=== PATIENT | male | born 1930 | race Caucasian/White ===

== ENCOUNTER → 2016-07-31 | Outpatient (CLI) | payer MEDICARE ==
[~2016-07-31] MED LIST: ACET65TA OR; ALDA25TA2 OR; ALEV220C2 PO; COUM1TAB17 PO; COUM7.5T PO; DEMA10TA OR; IRON65TA PO; LASI40TA PO; MULTIVIT PO; OSTEO BIFLEX PO; PERC5TAB6 PO; PERCOCET PO; SPIR25TA2 PO; TORS10TA3 PO; TYLE325T5 PO; VITA100072 IM; VITA250T OR; osteobiflex OR
--- NOTE | 2016-07-31 11:53 | REP ---
CHEST, TWO VIEWS: Two views of the chest are performed and compared to a prior study of 06/18/2014. There is mild elevation of the left hemidiaphragm unchanged. No new infiltrates are seen with mild bibasilar fibroatelectatic change. The heart is not significantly enlarged. There is tortuosity of the thoracic aorta. The mediastinal silhouette is unchanged. A left dual-lead pacemaker is noted. There are degenerative changes of the spine. IMPRESSION: Stable chronic findings without evidence of acute infiltrate. Signed by Alan Barajas MD 07/31/2016 05:17 P
== END ==
LOC: M LRY 10:13
PROVIDERS: ATTEND Family Medicine
DX: R05 Cough (principal)
CPT/HCPCS: 71020; G0463

== ENCOUNTER 2016-10-27 06:37 | Outpatient (CLI) | payer MEDICARE ==
[~2016-10-27] VITALS: Ht 180.3 cm; Wt 122.5 kg
[~2016-10-27 06:37] MED LIST changes: +ALEV220T26 PO; +COLA100C5 PO; +ELIQ5TAB PO; +PERC5TAB12 PO; -PERC5TAB6 PO; +VITA500T53 PO
[2016-10-27] MEDS ORDERED: LR 1,000 ML IV SCH (07:00)
[2016-10-27] MEDS ORDERED: PROPOFOL 200 MG/20 ML VIAL As Ordered ONE (07:09)
[2016-10-27] MEDS ORDERED: LIDOCAINE 2% INJ 100 MG/5 ML SDV (FOR ANES.) As Ordered ONE (07:10)
--- NOTE | 2016-10-27 08:20 | ROOR ---
Patient Name: Juan A Ackerman Procedure Date: 10/27/2016 7:32 AM Date of : 1930 Age: 86 Room: [facility] Gender: Male Note Status: Finalized Procedure: Colonoscopy Indications: High risk colon cancer surveillance: Personal history of colon cancer, Last colonoscopy: 2011. Right hemicolectomy for cancer 1995. Providers: Fernandez Jones MD Referring MD: Rick Liu MD Requesting Provider: Medicines: Monitored Anesthesia Care Complications: No immediate complications. Procedure: Pre-Anesthesia Assessment: - Prior to the procedure, a History and Physical was performed, and patient medications and allergies were reviewed. The patient is competent. The risks and benefits of the procedure and the sedation options and risks were discussed with the patient. All questions were answered and informed consent was obtained. Patient identification and proposed procedure were verified by the physician, the nurse and the anesthesiologist in the procedure room. Mental Status Examination: alert and oriented. Airway Examination: normal oropharyngeal airway and neck mobility. CV Examination: regular rate and rhythm. Prophylactic Antibiotics: The patient does not require prophylactic antibiotics. Prior Anticoagulants: The patient has taken no previous anticoagulant or antiplatelet agents. ASA Grade Assessment: III - A patient with severe systemic disease. After reviewing the risks and benefits, the patient was deemed in satisfactory condition to undergo the procedure. The anesthesia plan was to use monitored anesthesia care (MAC). Immediately prior to administration of medications, the patient was re-assessed for adequacy to receive sedatives. The heart rate, respiratory rate, oxygen saturations, blood pressure, adequacy of pulmonary ventilation, and response to care were monitored throughout the procedure. The physical status of the patient was re-assessed after the procedure. The Colonoscope was introduced through the anus and advanced to the ileocolonic anastomosis. The colonoscopy was performed without difficulty. The patient tolerated the procedure well. The quality of the bowel preparation was good. Findings: The perianal and digital rectal examinations were normal. There was evidence of a prior functional end-to-end ileo-colonic anastomosis at the hepatic flexure. This was patent and was characterized by healthy appearing mucosa. The entire examined colon appeared normal. Impression: - Patent functional end-to-end ileo-colonic anastomosis, characterized by healthy appearing mucosa. - The entire examined colon is normal. - No specimens collected. Recommendation: - Discharge patient to home. - Resume previous diet. - Continue present medications. - Return to endoscopist PRN. Fernandez Jones MD 10/27/2016 8:19:44 AM Number of Addenda: 0 Note Initiated On: 10/27/2016 7:32 AM Estimated Blood Loss: Estimated blood loss: none.
[2016-10-27 08:44] VITALS: BP 127/61
== END 2016-10-27 08:47 ==
LOC: M OPP 06:37
PROVIDERS: ATTEND Surgery
DX: Z12.11 Encounter for screening for malignant neoplasm of colon (principal); Z85.038 Personal history of other malignant neoplasm of large intestine; Z98.0 Intestinal bypass and anastomosis status; I48.91 Unspecified atrial fibrillation; I48.92 Unspecified atrial flutter; I50.9 Heart failure, unspecified; M19.90 Unspecified osteoarthritis, unspecified site; E66.9 Obesity, unspecified; Z95.0 Presence of cardiac pacemaker; Z87.891 Personal history of nicotine dependence; Z79.899 Other long term (current) drug therapy; Z88.0 Allergy status to penicillin; Z88.8 Allergy status to other drugs, medicaments and biological substances

== ENCOUNTER → 2016-12-23 | Outpatient (REF) | payer MEDICARE ==
[2016-12-23 12:28] LABS: BASO % 0.4 % (0.0-1.0); EOS # 0.1 10^3/uL (0.0-0.50); EOS % 1.2 % (0.0-3.0); IMMATURE GRANULOCYTE % 0.5 % (0-0); LYMPH # 3.4 10^3/uL (1.5-4.5); LYMPH % 36.7 % (24.0-44.0); MEAN CORPUSCULAR HEMOGLOBIN 32.5 pg (27.0-33.0); MEAN CORPUSCULAR HGB CONC 34.2 g/dl (32.0-36.5); MONO # 0.9 10^3/uL (0.0-0.8); MONO % 9.8 % (0.0-5.0); NEUTROPHILS # 4.8 10^3/uL (1.8-7.7); NEUTROPHILS % 51.4 % (36.0-66.0); PLATELET COUNT, AUTOMATED 208 10^3/uL (150-450); RED CELL DISTRIBUTION WIDTH 12.7 % (11.5-14.5); WHITE BLOOD COUNT 9.3 10^3/uL (4.0-10.0)
[2016-12-23 12:50] LABS: ERYTHROCYTE SEDIMENTATION RATE 54 mm/hr (0-30)
[2016-12-23 12:57] LABS: URIC ACID 8.9 MG/DL (3.5-7.2)
== END ==
LOC: M LABDRAW1 11:31
PROVIDERS: ATTEND Orthopaedic Surgery
DX: M79.675 Pain in left toe(s) (principal)

== ENCOUNTER 2017-02-24 20:45 | Emergency (ER) | payer MEDICARE ==
[~2017-02-24] VITALS: Ht 175.3 cm; Wt 133.2 kg
[2017-02-24] MEDS ORDERED: ALLO100T PO (21:00)
[2017-02-24] MEDS ORDERED: IPRATROPIUM 0.5MG/ALBUTEROL 2.5MG INH SOL UD 3ML (DUONEB)(J7620) NEB ONE (21:15)
[2017-02-24] MEDS ORDERED: methylPREDNISolone INJ 125 MG/2 ML VIAL (J2930) IV ONE (21:15)
[2017-02-24] MEDS ORDERED: FUROSEMIDE 40 MG/4 ML VIAL (J1940) IV ONE (21:30)
--- NOTE | 2017-02-24 21:57 | REP ---
Clinical: Shortness of breath. Comparison: 07/31/2016. Technique: PA and lateral. Findings: Mediastinum and cardiac silhouette are stable. Elevation of the left hemidiaphragm is unchanged. Lung nesbitt demonstrate diffuse chronic interstitial changes without obvious consolidation, effusion, or pneumothorax. Trace basilar atelectasis cannot be excluded. No effusion. No pneumothorax. Skeletal structures intact. Impression: Stable chronic changes. Cannot exclude trace basilar atelectasis. Signed by Jayro Lion MD 02/24/2017 09:48 P
[2017-02-24 22:02] LABS: BASO # 0.1 10^3/uL (0.0-0.2); BASO % 0.5 % (0.0-1.0); EOS # 0.1 10^3/uL (0.0-0.50); EOS % 0.8 % (0.0-3.0); IMMATURE GRANULOCYTE % 0.7 % (0-0); LYMPH # 2.7 10^3/uL (1.5-4.5); LYMPH % 25.7 % (24.0-44.0); MEAN CORPUSCULAR HEMOGLOBIN 32.6 pg (27.0-33.0); MEAN CORPUSCULAR HGB CONC 34.4 g/dl (32.0-36.5); MEAN CORPUSCULAR VOLUME 94.8 fl (80.0-96.0); MONO # 0.9 10^3/uL (0.0-0.8); MONO % 8.9 % (0.0-5.0); NEUTROPHILS # 6.7 10^3/uL (1.8-7.7); NEUTROPHILS % 63.4 % (36.0-66.0); PLATELET COUNT, AUTOMATED 213 10^3/uL (150-450); RED CELL DISTRIBUTION WIDTH 13.2 % (11.5-14.5); WHITE BLOOD COUNT 10.5 10^3/uL (4.0-10.0)
[2017-02-24 22:27] LABS: ALBUMIN 3.5 GM/DL (3.2-5.2); ALBUMIN/GLOBULIN RATIO 1.03 (1.00-1.93); BILIRUBIN,TOTAL 0.6 MG/DL (0.2-1.0); CALCIUM LEVEL 8.5 MG/DL (8.8-10.2); CREATININE FOR GFR 1.35 MG/DL (0.70-1.30); GLOMERULAR FILTRATION RATE 53.5 (>35); POTASSIUM SERUM 4.6 MEQ/L (3.5-5.1); TOTAL PROTEIN 6.9 GM/DL (6.4-8.2); URIC ACID 7.6 MG/DL (3.5-7.2)
[2017-02-24] MEDS ORDERED: SPIR100T PO (23:33)
[2017-02-24] MEDS ORDERED: PRED20TA PO (23:33)
[2017-02-24 23:49] VITALS: BP 140/66
--- NOTE | 2017-02-25 02:11 | ECGEPIP ---
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
== END 2017-02-24 23:51 | disposition home or self-care (01) ==
LOC: M ED 20:45 → EDBD 20:45 → M ED 23:51
DX: I50.9 Heart failure, unspecified (principal); R60.0 Localized edema; M10.9 Gout, unspecified; Z87.891 Personal history of nicotine dependence
CPT/HCPCS: 71020; 80053; 82550; 82553; 83880; 84484; 84550; 85025; 87040; 93005; 94640; 96374; 96375; 99284; G0463; J1940; J2930

== ENCOUNTER → 2017-02-26 | Outpatient (REF) | payer MEDICARE ==
[~2017-02-26] MED LIST changes: +ALLO100T PO; +PRED20TA PO; +SPIR100T PO
[2017-02-26 12:25] LABS: ALBUMIN 3.7 GM/DL (3.2-5.2); ALBUMIN/GLOBULIN RATIO 0.95 (1.00-1.93); BILIRUBIN,TOTAL 0.6 MG/DL (0.2-1.0); CALCIUM LEVEL 9.5 MG/DL (8.8-10.2); CREATININE FOR GFR 1.42 MG/DL (0.70-1.30); GLOMERULAR FILTRATION RATE 50.4 (>35); POTASSIUM SERUM 4.3 MEQ/L (3.5-5.1); TOTAL PROTEIN 7.6 GM/DL (6.4-8.2)
== END ==
LOC: M SFHCLERA 09:07
PROVIDERS: ATTEND Physician Assistant
DX: I50.33 Acute on chronic diastolic (congestive) heart failure (principal); R73.01 Impaired fasting glucose

== ENCOUNTER 2018-02-25 04:19 | Emergency (ER) | payer MEDICARE ==
[2018-02-25 04:49] LABS: BASO # 0.1 10^3/uL (0.0-0.2); BASO % 0.7 % (0.0-1.0); EOS # 0.2 10^3/uL (0.0-0.50); EOS % 1.9 % (0.0-3.0); HEMATOCRIT 39.7 % (42.0-52.0); HEMOGLOBIN 13.7 g/dl (13.5-17.5); IMMATURE GRANULOCYTE % 0.6 % (0-3.0); LYMPH # 2.7 10^3/uL (1.5-4.5); LYMPH % 30.7 % (24.0-44.0); MEAN CORPUSCULAR HEMOGLOBIN 32.9 pg (27.0-33.0); MEAN CORPUSCULAR HGB CONC 34.5 g/dl (32.0-36.5); MEAN CORPUSCULAR VOLUME 95.4 fl (80.0-96.0); MONO # 0.8 10^3/uL (0.0-0.8); MONO % 9.3 % (0.0-5.0); NEUTROPHILS % 56.8 % (36.0-66.0); PLATELET COUNT, AUTOMATED 181 10^3/uL (150-450); RED BLOOD COUNT 4.16 10^6/uL (4.30-6.10); RED CELL DISTRIBUTION WIDTH 13.3 % (11.5-14.5); WHITE BLOOD COUNT 8.7 10^3/uL (4.0-10.0)
[2018-02-25 06:00] LABS: INR 1.19; PROTHROMBIN TIME 15.3 SECONDS (12.1-14.4)
[2018-02-25 06:01] LABS: PARTIAL THROMBOPLASTIN TIME 41.4 SECONDS (25.4-37.6)
[2018-02-25 06:10] LABS: ANION GAP 9 MEQ/L (8-16); BLOOD UREA NITROGEN 23 MG/DL (7-18); CALCIUM LEVEL 8.7 MG/DL (8.8-10.2); CARBON DIOXIDE LEVEL 28 MEQ/L (21-32); CHLORIDE LEVEL 99 MEQ/L (98-107); CPK CREATINE PHOSPHOKINASE 61 U/L (39-308); CREATININE FOR GFR 1.18 MG/DL (0.70-1.30); GLOMERULAR FILTRATION RATE > 60.0 (>35); GLUCOSE, FASTING 109 MG/DL (70-100); NT-PRO BNP 1150 PG/ML (<450); POTASSIUM SERUM 4.1 MEQ/L (3.5-5.1); SODIUM LEVEL 136 MEQ/L (136-145); TROPONIN I 0.05 NG/ML (< 0.10)
== END 2018-02-25 07:52 | disposition home or self-care (01) ==
LOC: M ED 04:19
DX: R25.2 Cramp and spasm (principal); I48.91 Unspecified atrial fibrillation; I48.92 Unspecified atrial flutter; I25.10 Atherosclerotic heart disease of native coronary artery without angina pectoris; M19.90 Unspecified osteoarthritis, unspecified site; Z95.0 Presence of cardiac pacemaker; Z79.899 Other long term (current) drug therapy; Z79.01 Long term (current) use of anticoagulants; Z88.0 Allergy status to penicillin; Z88.4 Allergy status to anesthetic agent; Z87.891 Personal history of nicotine dependence
CPT/HCPCS: 93970

== ENCOUNTER → 2018-03-08 | Outpatient (REF) | payer MEDICARE ==
[2018-03-08 14:45] LABS: FOLATE 13.2 NG/ML; RHEUMATOID FACTOR QUANT < 10.0 IU/ML (<15.0); TOTAL PROTEIN 7.3 GM/DL (6.4-8.2); VITAMIN B12 LEVEL 635 PG/ML
[2018-03-08 14:52] LABS: ERYTHROCYTE SEDIMENTATION RATE 46 mm/hr (0-30)
[2018-03-08 16:26] LABS: ESTIMATED AVERAGE GLUCOSE 131 MG/DL (60-110); HEMOGLOBIN A1c 6.2 %
[2018-03-10 11:02] LABS: ALBUMIN % 54.1 % (55.8-66.1); ALPHA-1-GLOBULIN % 5.1 % (2.9-4.9); BETA-1-GLOBULINS % 7.4 % (4.7-7.2); BETA-2-GLOBULINS % 5.3 % (3.2-6.5); GAMMA GLOBULIN % 12.1 % (11.1-18.8)
[2018-03-10 11:03] LABS: ALBUMIN 3.95 GM/DL (3.29-5.55); ALPHA-1-GLOBULINS 0.37 GM/DL (0.17-0.41); ALPHA-2-GLOBULINS 1.17 GM/DL (0.42-0.99); BETA-1-GLOBULINS 0.54 GM/DL (0.28-0.60); BETA-2-GLOBULINS 0.39 GM/DL (0.19-0.55); GAMMA GLOBULINS 0.88 GM/DL (0.65-1.58)
[2018-03-14 00:43] LABS: ANTI DOUBLE STRAND-DNA AB 1 IU/mL (0-9); ANTINUCLEAR ANTIBODIES DIRECT Positive (Negative); Methylmalonic Acid 104 nmol/L (0-378); SJOGREN'S ANTI SS-A <0.2 AI (0.0-0.9); SJOGREN'S ANTI SS-B <0.2 AI (0.0-0.9); SMITH ANTIBODIES <0.2 AI (0.0-0.9); VITAMIN B1 LEVEL WHOLE BLOOD 167.9 nmol/L (66.5-200.0); VITAMIN B6,PYRIDOXAL PHOSPHATE 12.7 ug/L (5.3-46.7); VITAMIN E(ALPHA TOCOPHEROL) 15.4 mg/L (9.0-29.0); VITAMIN E(GAMMA TOCOPHEROL) 2.7 mg/L (0.5-4.9)
== END ==
LOC: M LABNEURO 10:26
DX: E11.9 Type 2 diabetes mellitus without complications (principal); E07.9 Disorder of thyroid, unspecified
CPT/HCPCS: 82746

== ENCOUNTER → 2018-03-09 | Outpatient (CLI) | payer MEDICARE | LOC: M RAD 16:59 | DX: M51.26 Other intervertebral disc displacement, lumbar region (principal); M48.061 Spinal stenosis, lumbar region without neurogenic claudication; I73.9 Peripheral vascular disease, unspecified; R51 Headache; R26.81 Unsteadiness on feet; M48.062 Spinal stenosis, lumbar region with neurogenic claudication | CPT/HCPCS: 70450 ==

== ENCOUNTER → 2018-08-15 | Outpatient (REF) | payer MEDICARE ==
[~2018-08-15] MED LIST changes: +PREG25CA PO; +SPIR-10 PO; -SPIR100T PO; +SPIR100T3 PO; -SPIR25TA2 PO; +VITA100018 IM; -VITA100072 IM; +VITA500T17 PO; -VITA500T53 PO
[2018-08-15 17:10] LABS: BASO % 0.3 % (0.0-1.0); EOS # 0.1 10^3/uL (0.0-0.50); EOS % 0.6 % (0.0-3.0); HEMATOCRIT 45.8 % (42.0-52.0); HEMOGLOBIN 15.6 g/dl (13.5-17.5); LYMPH # 2.9 10^3/uL (1.5-4.5); LYMPH % 23.9 % (24.0-44.0); MEAN CORPUSCULAR HEMOGLOBIN 32.9 pg (27.0-33.0); MEAN CORPUSCULAR HGB CONC 34.1 g/dl (32.0-36.5); MEAN CORPUSCULAR VOLUME 96.6 fl (80.0-96.0); MONO # 1.1 10^3/uL (0.0-0.8); MONO % 8.8 % (0.0-5.0); NEUTROPHILS # 7.9 10^3/uL (1.8-7.7); NEUTROPHILS % 64.9 % (36.0-66.0); PLATELET COUNT, AUTOMATED 216 10^3/uL (150-450); RED BLOOD COUNT 4.74 10^6/uL (4.30-6.10); WHITE BLOOD COUNT 12.1 10^3/uL (4.0-10.0)
[2018-08-15 17:38] LABS: ERYTHROCYTE SEDIMENTATION RATE 36 mm/hr (0-30)
== END ==
LOC: M LABDRAW1 15:37
PROVIDERS: ATTEND Orthopaedic Surgery
DX: M25.562 Pain in left knee (principal)

== ENCOUNTER 2018-09-01 19:18 | Inpatient (IN) | payer MEDICARE ==
[~2018-09-01] VITALS: Ht 177.8 cm; Wt 125.5 kg
[2018-09-01] MEDS ORDERED: IPRATROPIUM 0.5MG/ALBUTEROL 2.5MG INH SOL UD 3ML (DUONEB)(J7620) NEB ONE (21:00)
[2018-09-01 21:39] LABS: BASO % 0.2 % (0.0-1.0); EOS % 0.3 % (0.0-3.0); HEMATOCRIT 40.8 % (42.0-52.0); HEMOGLOBIN 14.1 g/dl (13.5-17.5); LYMPH # 1.7 10^3/uL (1.5-4.5); LYMPH % 11.7 % (24.0-44.0); MEAN CORPUSCULAR HEMOGLOBIN 34.2 pg (27.0-33.0); MEAN CORPUSCULAR HGB CONC 34.6 g/dl (32.0-36.5); MONO # 0.7 10^3/uL (0.0-0.8); MONO % 5.1 % (0.0-5.0); NEUTROPHILS # 11.7 10^3/uL (1.8-7.7); PLATELET COUNT, AUTOMATED 189 10^3/uL (150-450); RED BLOOD COUNT 4.12 10^6/uL (4.30-6.10); WHITE BLOOD COUNT 14.2 10^3/uL (4.0-10.0)
[2018-09-01 22:02] LABS: ALBUMIN 2.9 GM/DL (3.2-5.2); BILIRUBIN,DIRECT 0.2 MG/DL (0.0-0.2); BILIRUBIN,TOTAL 0.5 MG/DL (0.2-1.0); CALCIUM LEVEL 8.1 MG/DL (8.8-10.2); CREATININE FOR GFR 1.48 MG/DL (0.70-1.30); GLOMERULAR FILTRATION RATE 47.9 (>35); POTASSIUM SERUM 4.5 MEQ/L (3.5-5.1); TOTAL PROTEIN 6.6 GM/DL (6.4-8.2)
[2018-09-01] MEDS: NS 1,000 ML IV SCH (22:52)
[2018-09-01] MEDS: GASTROGRAFIN SOLUTION 30ML PO SCH ×2 (22:59→23:33)
--- NOTE | 2018-09-01 23:30 | REPVR ---
EXAM: XR Chest, 2 Views EXAM DATE/TIME: 09/01/2018 10:22 PM CLINICAL HISTORY: 88 years old, male; Signs and symptoms; Wheezing; Additional info: Chf, diffuse wheezing TECHNIQUE: Imaging protocol: XR of the chest, 2 views. COMPARISON: CR Chest, 2 view PA, Lat 02/24/2017 9:14 PM FINDINGS: Tubes, catheters and devices: There is a left AICD. Lungs: Left hemidiaphragm elevated with left basilar atelectasis. No consolidation. Pleural space: Unremarkable. No pleural effusion. No pneumothorax. Heart/Mediastinum: Unremarkable. No cardiomegaly. Vasculature: There is atherosclerosis of the aorta. Bones/joints: Unremarkable. IMPRESSION: No acute cardiopulmonary abnormality. Electronically signed by: Nicolasa Garcia On 09/01/2018 23:29:31 PM
--- NOTE | 2018-09-01 23:31 | REPVR ---
EXAM: XR Right Elbow EXAM DATE/TIME: 09/01/2018 10:22 PM CLINICAL HISTORY: 88 years old, male; Signs and symptoms; Other: Pain in right elbow; Additional info: Chf, diffuse wheezing TECHNIQUE: Imaging protocol: XR Right elbow. Views: 3 or more views. COMPARISON: No relevant prior studies available. FINDINGS: Bones/joints: There is normal alignment of the elbow. No fracture or dislocation. Small triceps enthesophyte. Soft tissues: Vascular calcifications are present. IMPRESSION: No acute findings. Electronically signed by: Nicolasa Garcia On 09/01/2018 23:30:56 PM
[2018-09-02] MEDS ORDERED: ISOVUE-370 76% 100ML VIAL (Q9967) As Ordered ONE (00:19)
--- NOTE | 2018-09-02 02:07 | REPVR ---
EXAM: CT Abdomen and Pelvis With Contrast EXAM DATE/TIME: 09/01/2018 12:30 AM CLINICAL HISTORY: 88 years old, male; Abdominal pain; Generalized; Additional Info: R/O ischemic bowel TECHNIQUE: Imaging protocol: Axial computed tomography images of the abdomen and pelvis with intravenous contrast. Coronal and sagittal reformatted images were created and reviewed. Radiation optimization: All CT scans at this facility use at least one of these dose optimization techniques: automated exposure control; mA and/or kV adjustment per patient size (includes targeted exams where dose is matched to clinical indication); or iterative reconstruction. Contrast material: ISOVUE 370; Contrast volume: 100 ml; Contrast route: IV; COMPARISON: CT ABD PELVIS WITH CONTRAST 07/22/2014 9:17 PM FINDINGS: Tubes, catheters and devices: Pacemaker leads in the right heart. Lungs: Dependent atelectasis in the lung. Scattered linear atelectasis in the lung bases. Heart: There is mitral annulus calcification. There is nonspecific perinephric stranding bilaterally. Coronary arteries: Severe coronary artery calcification. ABDOMEN: Liver: Normal. No mass. Gallbladder and bile ducts: Status post cholecystectomy. No biliary ductal dilatation. Pancreas: Normal. No ductal dilation. Spleen: Normal. No splenomegaly. Adrenals: Normal. No mass. Kidneys and ureters: No hydronephrosis bilaterally. Exophytic cyst in the anterior midpole of the left kidney measuring 2.6 cm. Stomach and bowel: Negative for colonic diverticulitis. No abnormal bowel dilatation. No abnormal bowel wall thickening. Status post right hemicolectomy. Appendix: Appendix is not present. PELVIS: Bladder: Unremarkable as visualized. Reproductive: Prostate is normal in size. ABDOMEN and PELVIS: Intraperitoneal space: Normal. No free air. No significant fluid collection. Bones/joints: Severe degenerative spine. No acute fracture. Soft tissues: Mild gynecomastia. 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 Severe calcified atherosclerotic disease. Mild fusiform dilatation of the infrarenal abdominal aorta measuring up to 3.1 cm. No aortic rupture. Lymph nodes: Normal. No enlarged lymph nodes. IMPRESSION: 1. No abnormal bowel wall thickening. 2. Left renal cyst. No followup is necessary. 3. Status post right hemicolectomy. 4. Additional findings as described. Electronically signed by: Joanne Covington On 09/02/2018 02:06:51 AM
[2018-09-02 02:54] LABS: CREATININE FOR GFR 1.35 MG/DL (0.70-1.30); GLOMERULAR FILTRATION RATE 53.2 (>35); MB/CK RELATIVE INDEX 3.53 (< OR =4); TROPONIN I 0.08 NG/ML (< 0.10)
[2018-09-02] MEDS ORDERED: SPIR100T3 PO (02:58)
[2018-09-02] MEDS ORDERED: ALBU83IN INH (02:58)
[2018-09-02] MEDS ORDERED: TORS20TA2 PO ×2 (02:58)
[2018-09-02] MEDS ORDERED: MIRA1POW3 PO (02:58)
[2018-09-02] MEDS: NS 1,000 ML IV SCH (05:28)
[2018-09-02] MEDS ORDERED: ACETAMINOPHEN TAB 650MG DOSE (2X325MG) PO PRN (05:30)
--- NOTE | 2018-09-02 06:33 | HPEPDOC ---
General Date of Admission 09/02/2018 Date of Service: Sep 02, 2018 Attending Physician: LILIAN NESBITT MD Chief Complaint The patient is a 88-year-old male admitted with a reason for visit of Diarrhea/W eakness. Source: Patient Exam Limitations: No limitations Timing/Duration: 24 hours History of Present Illness Mr. Ackerman is an 88-year-old male who presents to [facility]'s Emergency Department with diarrhea and right elbow pain. Patient states that he developed acute onset diarrhea yesterday. He had no warning that he was about to have a bowel movement. It was liquid, but there was no blood. He had two episodes at home and one episode at the hospital. He has not had any sick contact. He has not had any changes to his diet. He does describe lower pelvic pain that he rates 5/10 and describes it as a steady gnawing pain. He is nauseated, but has not vomited. He describes dry heaves only. He has been eating and drinking without difficulty. He does not feel weak. There is no lightheadedness or dizziness. Patient also describes right elbow pain that is tender. He does not recall any inciting event. If he bumps it, it hurts. It has been present for about 1.5 weeks. He states that if he moves his elbow slowly then there is not much pain, but any sudden movement does cause significant pain. He has been putting a cream on it that causes a warm sensation and he says that provides some relief. He does feel weak in that arm. There is no numbness or tingling. He does not feel short of breath at rest or have shortness of breath with laying flat. He does not wake up at night gasping for air. He does get short of breath with exertion. He uses a walker and/or a cane, or when he has to, a wheelchair for mobility. He does describe an anterior band-like chest pain across his chest without radiating pain. He describes the pain as constant and did take a medication (unsure of the type) that did not relief his pain. The pain finally dissipated on its own. He has been coughing up white-yellow mucous. Emergency Department evaluation reveals stable vital signs. Neutrophilic leukocytosis of 14.2. Resolved lactic acid from 3.3 to 1.9. BUN/Cr of 40/1.48. BNP was 2405. Gastrointestinal panel was negative. Imaging was unremarkable. Abnormal urinalysis. Blood and urine cultures are pending. Hospitalist service was consulted and patient was admitted for further medical management. Home Medications Scheduled Albuterol Sulf (Albuterol Sulfate) 2.5 Mg/3 Ml Vial.neb, 2.5 MG INH TID, (Reported) Apixaban (Eliquis) 5 Mg Tab, 5 MG PO BID, (Reported) Cyanocobalamin (Vitamin B-12) (Vitamin B-12) 500 Mcg Tab, 500 MCG PO DAILY, (Reported) Polyethylene Glycol 3350 (Miralax) 17 Gm Powd.pack, 17 GM PO DAILY, (Reported) Spironolactone (Spironolactone) 100 Mg Tablet, 100 MG PO DAILY, (Reported) Torsemide (Torsemide) 20 Mg Tablet, 60 MG PO DAILY, (Reported) Torsemide (Torsemide) 20 Mg Tablet, 40 MG PO QPM, (Reported) Allergies Coded Allergies: Penicillins (Verified Allergy, Intermediate, hives/swelling, 09/01/18) procaine (Verified Allergy, Mild, RASH/SWELLING, 09/01/18) Past Medical History Medical History 1. Diastolic congestive heart failure, LVEF 70% 2. Mild pulmonary HTN 3. Atrial flutter 4. Depression 5. Colon cancer 6. ED 7. Obesity 8. AV block s/p pacemaker insertion 9. Mild aortic stenosis Surgical History 1. B/L knee arthroplasty 2. Colonoscopy 3. Polypectomy 4. Cholecystectomy 5. Left leg lesion excision 6. Right hemicolectomy 7. Pacemaker insertion Family History Father: , 90s, old age Mother: , 80s, old age Siblings - Brothers: x4, 1 from dementia - Sisters: x4, 1 at 1 month old Social History * Smoker: former Smoker (1 PPD for 40+ years, quit 30+ years ago) Alcohol: rarely Drugs: denies Lives independently with his of 60+ years. 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 No pets. Former smoker, 40+ pack year history. Rarely consumes EtOH. No illicit drugs. A-FIB/CHADSVASC A-FIB History Current/History of A-Fib/PAF?: Yes (atrial flutter) Current PO Anticoag Therapy: Yes Age/Risk Factor Scoring CHADSVASC: CHADSVASC Response (Comments) Value Age Risk Factor Age >/= 75 years old 2 Gender Risk Factor Male 0 Hx of CHF Yes 1 Hx of HTN Yes 1 Hx of Stroke/TIA/or VTE No 0 Hx of Diabetes No 0 Hx of Vascular Disease No 0 Total 4 Treatment Treatment ordered: Apixaban Review of Systems Constitutional: Reports: Weakness; Denies: Chills, Fever, Night Sweats Eyes: Denies: Vision change, Conjunctivae inflammation, Eyelid inflammation ENT: Denies: Head Aches, Dysphagia, Sinus Congestion, Post Nasal Drip, Sore Throat, Epistaxis Skin: Denies: Rash, Lesions Pulmonary: Reports: Dyspnea, Cough Cardiovascular: Reports: Chest Pain, Edema; Denies: Palpitations, Orthopnea, Paroxysmal Noc. Dyspnea, Lt Headedness Gastrointestinal: Reports: Nausea, Abdominal Pain, Diarrhea; Denies: Vomiting, Constipation, Melena, Hematochezia Genitourinary: Denies: Dysuria, Frequency, Incontinence, Hematuria, Retention Hematologic: Denies: Bruising Musculoskeletal: Denies: Neck Pain, Back Pain, Joint Pain, Muscle Pain Neurological: Reports: Weakness; Denies: Numbness Physical Examination General Exam: Positive: Alert, Cooperative, No Acute Distress Eye Exam: Positive: PERRLA, Conjunctiva & lids normal, EOMI; Negative: Sclera icteric ENT Exam: Positive: Atraumatic, Mucous membr. moist/pink, Pharynx Normal, Tongue Midline, Nares Patent; Negative: Pharyngeal Edema Neck Exam: Positive: Supple, +2 carotid pulse wo bruit; Negative: JVD (unable to discerne due to neck circumference and body habitus), thyromegaly, Lymphadenopathy Chest Exam: Positive: Clear to auscultation, Normal air movement; Negative: Rales, Rhonchi, Wheezing, Diminished Heart Exam: Positive: Rate Normal, Regular Rhythm, Normal S1, Normal S2; Negative: Gallops, Murmurs, Rubs Telemetry: Positive: Other Telemetry: (atrial flutter) Abdomen Exam: Positive: BS Hypoactive (due to body habitus), Soft, Other (obese, rotund); Negative: Tenderness, Hepatospenomegaly, Mass, Hernia Extremity Exam: Positive: Edema (+3 pitting edema in B/L LE), Swelling; Negative: Clubbing, Cyanosis, Normal pulses (difficult to appreciate due to edema), Tenderness Skin Exam: Positive: Other skin issue (chronic changes noted to B/L LE); Negative: Rash, Lesion Neuro Exam: Positive: Normal Speech, Cranial Nerves 3-12 NL Psych Exam: Positive: Oriented x 3 Other physical findings 1. Right complete elbow x-ray - No acute findings. 2. Chest x-ray, 2 views, PA and lateral - No acute cardiopulmonary abnormality. 3. CT abdomen and pelvis with contrast - No abnormal bowel wall thickening. Left renal cyst. No followup is necessary. Status post right hemicolectomy. Vital Signs Vital Signs Date Time Temp Pulse Resp B/P (MAP) Pulse Ox O2 Delivery O2 Flow Rate FiO2 09/02/18 05:29 97.3 60 18 110/68 (82) 98 Room Air Height (in): 70 Weight (kg): 120.45 Laboratory Data Labs 24H Laboratory Tests 2 09/01/18 21:26: Immature Granulocyte % (Auto) 0.7, White Blood Count 14.2H, Red Blood Count 4.12L, Hemoglobin 14.1, Hematocrit 40.8L, Mean Corpuscular Volume 99.0H, Mean Corpuscular Hemoglobin 34.2H, Mean Corpuscular Hemoglobin Concent 34.6, Red Cell Distribution Width 13.0, Platelet Count 189, Neutrophils (%) (Auto) 82.0H, Lymphocytes (%) (Auto) 11.7L, Monocytes (%) (Auto) 5.1H, Eosinophils (%) (Auto) 0.3, Basophils (%) (Auto) 0.2, Neutrophils # (Auto) 11.7H, Lymphocytes # (Auto) 1.7, Monocytes # (Auto) 0.7, Eosinophils # (Auto) 0.0, Basophils # (Auto) 0.0, Nucleated Red Blood Cells % (auto) 0.0, Urine Color YELLOW, Urine Appearance CLEAR, Urine pH 5.0, Urine Specific [place] 1.009, Urine Protein NEGATIVE, Urine Glucose (UA) NEGATIVE, Urine Ketones NEGATIVE, Urine Blood 1+H, Urine Nitrite NEGATIVE, Urine Bilirubin NEGATIVE, Urine Urobilinogen 0.2, Urine Leukocyte Esterase 2+H, Urine WBC (Auto) 20H, Urine RBC (Auto) 6H, Urine Hyaline Casts (Auto) 22, Urine Bacteria (Auto) NEGATIVE, Urine Squamous Epithelial Cells 0, Urine Sperm (Auto) , Anion Gap 11, Glomerular Filtration Rate 47.9, Lactic Acid Level 3.3*H, Calcium Level 8.1L, Aspartate Amino Transf (AST/SGOT) 18, Alanine Aminotransferase (ALT/SGPT) 19, Alkaline Phosphatase 66, Total Bilirubin 0.5, Direct Bilirubin 0.2, YK-Hsh-K-Type Natriuretic Peptide 2405H, Total Protein 6.6, Albumin 2.9L, Albumin/Globulin Ratio 0.78L, Lipase 211 09/02/18 01:54: Glomerular Filtration Rate 53.2, Lactic Acid Followup at 4 Hours 1.9, Blood Urea Nitrogen 40H, Creatinine 1.35H, Total Creatine Kinase 85, Creatine Kinase MB 3.0, Creatine Kinase MB Relative Index 3.53, Troponin I 0.08 CBC/BMP Laboratory Tests 09/01/18 21:26 Red Blood Count 4.12 L, Mean Corpuscular Volume 99.0 H, Mean Corpuscular Hemoglobin 34.2 H, Mean Corpuscular Hemoglobin Concent 34.6, Red Cell Distribution Width 13.0, Neutrophils (%) (Auto) 82.0 H, Lymphocytes (%) (Auto) 11.7 L, Monocytes (%) (Auto) 5.1 H, Eosinophils (%) (Auto) 0.3, Basophils (%) (Auto) 0.2, Neutrophils # (Auto) 11.7 H, Lymphocytes # (Auto) 1.7, Monocytes # (Auto) 0.7, Eosinophils # (Auto) 0.0, Basophils # (Auto) 0.0 09/02/18 01:54 Total Creatine Kinase 85 Microbiology Microbiology 09/01/18 Blood Culture, Received Pending 09/01/18 Blood Culture, Received Pending 09/02/18 Gastrointestinal Tract Panel (PCR) - Final, Complete 09/01/18 Urine Culture, Received Pending Plan / VTE VTE Prophylaxis Ordered?: Yes (Eliquis 5mg PO BID) Plan Plan 1. Diarrhea likely 2/2 to viral etiology GI panel negative NS @ 100 mLs/hr Holding diuretics for the time-being Monitor labs daily 2. Abnormal urinalysis 2/2 UTI Neutrophilic leukocytosis likely due to infectious source --> monitor labs Improved lactic acid (3.3 --> 1.9) Urine and blood cultures ordered Started Ceftriaxone 1gm IV Q24H 3. Right elbow pain Imaging unremarkable Physical examination unremarkable Lidocaine patch and Tylenol as needed 4. HFpEF, LVEF 70% (2018) BNP 2405 likely secondary to obesity, no observation of fluid overload Compression stockings recommended to patient for peripheral edema --> TEDs ordered Disposition Admit: Med/Surg Anticipated hospitalization: Observation IVF: Initiate (NS @ 100 mLs/hr) Diet: Continue Current (2g sodium) Activity: Continue Current Therapy: PT Diagnostics: Check Labs, Repeat Labs in AM, Obtain Cultures (blood, urine) Anticipated Discharge: Home GME ATTESTATION GME ATTESTATION My faculty preceptor for this patient encounter was physically present during the encounter and was fully available. All aspects of the patient interview, examination, medical decision making process, and medical care plan development were reviewed and approved by the faculty preceptor. The faculty preceptor is aware and concurs with the plan as stated in the body of this note and will atte st to such by his/her cosignature. 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 I reviewed the resident's note and agree with the documented findings and plan of care. RAFFY ADAMS DO Sep 02, 2018 06:33 LILIAN NESBITT MD Sep 03, 2018 00:28
[2018-09-02 07:57] LABS: HEMOGLOBIN 13.3 g/dl (13.5-17.5); MEAN CORPUSCULAR HEMOGLOBIN 33.8 pg (27.0-33.0); MEAN CORPUSCULAR HGB CONC 34.1 g/dl (32.0-36.5); MEAN CORPUSCULAR VOLUME 99.2 fl (80.0-96.0); PLATELET COUNT, AUTOMATED 174 10^3/uL (150-450); RED BLOOD COUNT 3.93 10^6/uL (4.30-6.10); WHITE BLOOD COUNT 8.8 10^3/uL (4.0-10.0)
[2018-09-02 08:06] LABS: CALCIUM LEVEL 8.1 MG/DL (8.8-10.2); CREATININE FOR GFR 1.29 MG/DL (0.70-1.30); GLOMERULAR FILTRATION RATE 56.1 (>35); POTASSIUM SERUM 4.1 MEQ/L (3.5-5.1)
[2018-09-02] MEDS: FUROSEMIDE 100 MG/10 ML VIAL (J1940) IV SCH ×2 (09:00→17:37)
[2018-09-02] MEDS: SPIRONOLACTONE 50 MG TAB PO SCH (09:00)
[2018-09-02] MEDS: cefTRIAXone SOD 1 GM in D5W MINI-BAG PLUS 50 ML IV SCH (10:23)
[2018-09-02] MEDS: APIXABAN 5 MG TAB (ELIQUIS) PO SCH ×2 (10:24→20:42)
[2018-09-02] MEDS: CYANOCOBALAMIN 500 MCG TAB PO SCH (10:24)
[2018-09-02] MEDS: LIDOCAINE 5% (LIDODERM) PATCH TD SCH (10:25)
[2018-09-02] MEDS: ALBUTEROL SULFATE 2.5 MG/0.5 ML INH NEB SOLN INH SCH ×3 (10:43→18:26)
[2018-09-02 12:00] VITALS: BP 96/54
[2018-09-02 14:10] VITALS: BP 149/67
[2018-09-02 18:00] VITALS: BP 141/53
[2018-09-02] MEDS: **NOTE PATIENT COMMENT** MISC XX SCH (20:43)
[2018-09-02 20:51] VITALS: BP 102/58
[2018-09-03 06:07] VITALS: BP 107/61
[2018-09-03 06:08] VITALS: BP 138/52
[2018-09-03 06:52] LABS: HEMATOCRIT 39.2 % (42.0-52.0); HEMOGLOBIN 13.2 g/dl (13.5-17.5); MEAN CORPUSCULAR HEMOGLOBIN 33.8 pg (27.0-33.0); MEAN CORPUSCULAR HGB CONC 33.7 g/dl (32.0-36.5); MEAN CORPUSCULAR VOLUME 100.5 fl (80.0-96.0); PLATELET COUNT, AUTOMATED 170 10^3/uL (150-450); WHITE BLOOD COUNT 8.5 10^3/uL (4.0-10.0)
[2018-09-03 07:18] LABS: BLOOD UREA NITROGEN 25 MG/DL (7-18); CALCIUM LEVEL 8.8 MG/DL (8.8-10.2); CARBON DIOXIDE LEVEL 30 MEQ/L (21-32); CHLORIDE LEVEL 96 MEQ/L (98-107); CREATININE FOR GFR 1.16 MG/DL (0.70-1.30); GLOMERULAR FILTRATION RATE > 60.0 (>35); GLUCOSE, FASTING 130 MG/DL (70-100); POTASSIUM SERUM 4.2 MEQ/L (3.5-5.1); SODIUM LEVEL 132 MEQ/L (136-145)
[2018-09-03] MEDS: ALBUTEROL SULFATE 2.5 MG/0.5 ML INH NEB SOLN INH SCH ×3 (08:12→19:25)
--- NOTE | 2018-09-03 08:18 | IPNPDOC ---
Subjective Date Seen The patient was seen on 09/03/18. Subjective Chief Complaint/HPI Says the rattling in his chest is gone. 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 No furtehr diarrhea or abdominal pain or dry heaves. No fever or chills. Objective Physical Examination General Exam: Positive: Alert, Cooperative, No Acute Distress Eye Exam: Positive: PERRLA, Conjunctiva & lids normal, EOMI; Negative: Sclera icteric ENT Exam: Positive: Atraumatic, Mucous membr. moist/pink, Pharynx Normal, Tongue Midline, Nares Patent; Negative: Pharyngeal Edema Neck Exam: Positive: Supple, +2 carotid pulse wo bruit; Negative: JVD (unable to discerne due to neck circumference and body habitus), thyromegaly, Lymphadenopathy Chest Exam: Positive: Wheezing, Diminished; Negative: Rales Heart Exam: Positive: Rate Normal, Regular Rhythm, Normal S1, Normal S2; Negative: Gallops, Murmurs, Rubs Telemetry: Positive: Other Telemetry: (atrial flutter) Abdomen Exam: Positive: Normal bowel sounds, Soft, Other (obese, rotund); Negative: Tenderness, Hepatospenomegaly, Mass, Hernia Extremity Exam: Positive: Edema (+3 pitting edema in B/L LE), Swelling; Negative: Clubbing, Cyanosis, Normal pulses (difficult to appreciate due to edema), Tenderness Skin Exam: Positive: Other skin issue (chronic changes noted to B/L LE); Negative: Rash, Lesion Neuro Exam: Positive: Normal Speech, Cranial Nerves 3-12 NL Psych Exam: Positive: Oriented x 3 Assessment /Plan Assessment Mr. Ackerman is an 88-year-old male with PMH of morbid obesity, Diastolic congestive heart failure, LVEF 70%, Mild pulmonary HTN, Atrial flutter on Eliquis, Depression, Colon cancer s/p right hemicolectomy, appendectomy, cholecystectomy, ED, AV block s/p pacemaker insertion, Mild aortic stenosis who presents to [facility] Emergency Department with watery diarrhea , lower abdominal pain and right elbow pain. He had a very dirty UA so he was admitted for possible UTI and olecranon bursitis. He was also noted to have 4+ bipedal edema and he complained of some chest tightness and exertional SOB and some rattling in his chest. SO it is felt that he has CHF exacerbation also. Diastolic CHF exacerbation fluid restriction 1.8 liters IV lasix. Daily weight and I/Os Abdominal pain and diarrhea resolved. GI panel negative possibly viral enterocolitis UTI UA dirty but urine culture negative no UTI will discontinue antibiotics. 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 Olecranon bursitis symptomatic treatment H/o Atrial flutter now in sinus rhythm continue Eliquis Plan/VTE VTE Prophylaxis Ordered?: Yes (Eliquis 5mg PO BID) Plan IVF: Initiate (NS @ 100 mLs/hr) Diet: Continue Current (2g sodium) Activity: Continue Current Therapy: PT Diagnostics: Check Labs, Repeat Labs in AM, Obtain Cultures (blood, urine) Anticipated Discharge: Home VS, I&O, 24H, Fishbone Vital Signs/I&O Vital Signs Date Time Temp Pulse Resp B/P (MAP) Pulse Ox O2 Delivery O2 Flow Rate FiO2 09/03/18 06:08 97.4 62 20 138/52 (80) 96 09/02/18 05:29 Room Air I&O- Last 24 Hours up to 6 AM 09/03/18 06:00 Intake Total 560 ml Output Total 1250 ml Balance -690 ml Laboratory Data 24H LABS Laboratory Tests 2 09/02/18 14:11: Bedside Glucose (Misc Panel) 114H 09/03/18 06:33: Nucleated Red Blood Cells % (auto) 0.0, Anion Gap 6L, Glomerular Filtration Rate > 60.0, Blood Urea Nitrogen 25H, Creatinine 1.16, Sodium Level 132L, Potassium Level 4.2, Chloride Level 96L, Carbon Dioxide Level 30, Calcium Level 8.8 CBC/BMP Laboratory Tests 09/03/18 06:33 Red Blood Count 3.90 L, Mean Corpuscular Volume 100.5 H, Mean Corpuscular Hemoglobin 33.8 H, Mean Corpuscular Hemoglobin Concent 33.7, Red Cell Distribution Width 13.0, Calcium Level 8.8 Microbiology Microbiology 09/01/18 Blood Culture - Preliminary, Resulted No growth after 24 hours . All specim... 09/01/18 Blood Culture - Preliminary, Resulted No growth after 24 hours . All specim... 09/02/18 Gastrointestinal Tract Panel (PCR) - Final, Complete 09/01/18 Urine Culture - Final, Complete OSMIN STEVEN MD Sep 03, 2018 08:18
--- NOTE | 2018-09-03 08:32 | ECGEPIP ---
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
[2018-09-03] MEDS: cefTRIAXone SOD 1 GM in D5W MINI-BAG PLUS 50 ML IV SCH (10:18)
[2018-09-03] MEDS: APIXABAN 5 MG TAB (ELIQUIS) PO SCH ×2 (10:19→20:30)
[2018-09-03] MEDS: FUROSEMIDE 100 MG/10 ML VIAL (J1940) IV SCH ×2 (10:19→16:28)
[2018-09-03] MEDS: SPIRONOLACTONE 50 MG TAB PO SCH (10:19)
[2018-09-03] MEDS: CYANOCOBALAMIN 500 MCG TAB PO SCH (10:19)
[2018-09-03] MEDS: LIDOCAINE 5% (LIDODERM) PATCH TD SCH (10:20)
[2018-09-03 15:20] VITALS: BP 146/60
[2018-09-03] MEDS: **NOTE PATIENT COMMENT** MISC XX SCH (20:30)
[2018-09-03 20:45] VITALS: BP 133/104
[2018-09-03 20:46] VITALS: BP 130/62
[2018-09-04] MEDS: ALBUTEROL SULFATE 2.5 MG/0.5 ML INH NEB SOLN INH SCH ×3 (06:13→20:52)
[2018-09-04 06:23] VITALS: BP 102/47
[2018-09-04 06:34] LABS: HEMATOCRIT 37.3 % (42.0-52.0); HEMOGLOBIN 12.6 g/dl (13.5-17.5); MEAN CORPUSCULAR HEMOGLOBIN 33.9 pg (27.0-33.0); MEAN CORPUSCULAR HGB CONC 33.8 g/dl (32.0-36.5); MEAN CORPUSCULAR VOLUME 100.3 fl (80.0-96.0); PLATELET COUNT, AUTOMATED 176 10^3/uL (150-450); RED BLOOD COUNT 3.72 10^6/uL (4.30-6.10)
[2018-09-04 06:58] LABS: BLOOD UREA NITROGEN 22 MG/DL (7-18); CALCIUM LEVEL 8.6 MG/DL (8.8-10.2); CARBON DIOXIDE LEVEL 31 MEQ/L (21-32); CHLORIDE LEVEL 96 MEQ/L (98-107); CREATININE FOR GFR 1.19 MG/DL (0.70-1.30); GLOMERULAR FILTRATION RATE > 60.0 (>35); GLUCOSE, FASTING 126 MG/DL (70-100); POTASSIUM SERUM 3.9 MEQ/L (3.5-5.1); SODIUM LEVEL 135 MEQ/L (136-145)
[2018-09-04] MEDS: cefTRIAXone SOD 1 GM in D5W MINI-BAG PLUS 50 ML IV SCH (08:13)
[2018-09-04] MEDS: APIXABAN 5 MG TAB (ELIQUIS) PO SCH ×2 (08:14→20:59)
[2018-09-04] MEDS: SPIRONOLACTONE 50 MG TAB PO SCH (08:14)
[2018-09-04] MEDS: FUROSEMIDE 100 MG/10 ML VIAL (J1940) IV SCH ×3 (08:14→23:45)
[2018-09-04] MEDS: CYANOCOBALAMIN 500 MCG TAB PO SCH (08:14)
[2018-09-04] MEDS: LIDOCAINE 5% (LIDODERM) PATCH TD SCH (08:15)
--- NOTE | 2018-09-04 10:52 | IPNPDOC ---
Subjective Date Seen The patient was seen on 09/04/18. Subjective Chief Complaint/HPI Says leg swelling has not improved yet though says his breathing is better, he is walkiing in the room . Has been seen by PT. Objective Physical Examination General Exam: Positive: Alert, Cooperative, No Acute Distress Eye Exam: Positive: PERRLA, Conjunctiva & lids normal, EOMI; Negative: Sclera icteric ENT Exam: Positive: Atraumatic, Mucous membr. moist/pink, Pharynx Normal, Tongue Midline, Nares Patent; Negative: Pharyngeal Edema Neck Exam: Positive: Supple, +2 carotid pulse wo bruit; Negative: JVD (unable to discerne due to neck circumference and body habitus), thyromegaly, Lymphadenopathy Chest Exam: Positive: Wheezing, Diminished; Negative: Rales Heart Exam: Positive: Rate Normal, Regular Rhythm, Normal S1, Normal S2; Negative: Gallops, Murmurs, Rubs Telemetry: Positive: Other Telemetry: (atrial flutter) Abdomen Exam: Positive: Normal bowel sounds, Soft, Other (obese, rotund); Negative: Tenderness, Hepatospenomegaly, Mass, Hernia Extremity Exam: Positive: Edema (+3 pitting edema in B/L LE), Swelling; Negative: Clubbing, Cyanosis, Normal pulses (difficult to appreciate due to edema), Tenderness Skin Exam: Positive: Other skin issue (chronic changes noted to B/L LE); Negative: Rash, Lesion Neuro Exam: Positive: Normal Speech, Cranial Nerves 3-12 NL Psych Exam: Positive: Oriented x 3 Assessment /Plan Assessment Mr. Ackerman is an 88-year-old male with PMH of morbid obesity, Diastolic congestive heart failure, LVEF 70%, Mild pulmonary HTN, Atrial flutter on Eliquis, Depression, Colon cancer s/p right hemicolectomy, appendectomy, cholecystectomy, ED, AV block s/p pacemaker insertion, Mild aortic stenosis who presents to [facility] Emergency Department with watery diarrhea , lower abdominal pain and right elbow pain. He had a very dirty UA so he was admitted for possible UTI and olecranon bursitis. He was also noted to have 4+ bipedal edema and he complained of some chest tightness and exertional SOB and some rattling in his chest. SO it is felt that he has CHF exacerbation also. Diastolic CHF exacerbation fluid restriction 1.8 liters IV lasix. will increase dose, weight and pedal edema no improvement yet. Daily weight and I/Os Abdominal pain and diarrhea resolved. GI panel negative possibly viral enterocolitis UTI UA dirty but urine culture negative no UTI will discontinue antibiotics. 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 Olecranon bursitis symptomatic treatment H/o Atrial flutter now in sinus rhythm continue Eliquis Plan/VTE VTE Prophylaxis Ordered?: Yes (Eliquis 5mg PO BID) Plan IVF: Initiate (NS @ 100 mLs/hr) Diet: Continue Current (2g sodium) Activity: Continue Current Therapy: PT Diagnostics: Check Labs, Repeat Labs in AM, Obtain Cultures (blood, urine) Anticipated Discharge: Home VS, I&O, 24H, Fishbone Vital Signs/I&O Vital Signs Date Time Temp Pulse Resp B/P (MAP) Pulse Ox O2 Delivery O2 Flow Rate FiO2 09/04/18 06:23 97.5 60 18 102/47 (65) 98 09/02/18 05:29 Room Air I&O- Last 24 Hours up to 6 AM 09/04/18 06:00 Intake Total 870 ml Output Total 1975 ml Balance -1105 ml Laboratory Data 24H LABS Laboratory Tests 2 09/04/18 05:51: Nucleated Red Blood Cells % (auto) 0.0, Anion Gap 8, Glomerular Filtration Rate > 60.0, Blood Urea Nitrogen 22H, Creatinine 1.19, Sodium Level 135L, Potassium Level 3.9, Chloride Level 96L, Carbon Dioxide Level 31, Calcium Level 8.6L CBC/BMP Laboratory Tests 09/04/18 05:51 Red Blood Count 3.72 L, Mean Corpuscular Volume 100.3 H, Mean Corpuscular Hemoglobin 33.9 H, Mean Corpuscular Hemoglobin Concent 33.8, Red Cell Distribution Width 13.0, Calcium Level 8.6 L Microbiology Microbiology 09/01/18 Blood Culture - Preliminary, Resulted No Growth after 48 hours. All Specime... 09/01/18 Blood Culture - Preliminary, Resulted No Growth after 48 hours. All Specime... 09/02/18 Gastrointestinal Tract Panel (PCR) - Final, Complete 09/01/18 Urine Culture - Final, Complete OSMIN STEVEN MD Sep 04, 2018 10:52
[2018-09-04 14:31] VITALS: BP 108/58
[2018-09-04] MEDS ORDERED: POLYVINYL ALCOHOL OPHTH SOLN 15 ML(LIQUITEARS) OU PRN (15:30)
[2018-09-04] MEDS: **NOTE PATIENT COMMENT** MISC XX SCH (21:00)
[2018-09-04 22:00] VITALS: BP 122/57
[2018-09-05 06:00] VITALS: BP 120/62
[2018-09-05 06:16] LABS: HEMATOCRIT 40.5 % (42.0-52.0); HEMOGLOBIN 13.6 g/dl (13.5-17.5); MEAN CORPUSCULAR HEMOGLOBIN 33.3 pg (27.0-33.0); MEAN CORPUSCULAR HGB CONC 33.6 g/dl (32.0-36.5); PLATELET COUNT, AUTOMATED 212 10^3/uL (150-450); RED BLOOD COUNT 4.09 10^6/uL (4.30-6.10); WHITE BLOOD COUNT 8.8 10^3/uL (4.0-10.0)
[2018-09-05 06:44] LABS: CALCIUM LEVEL 8.6 MG/DL (8.8-10.2); CREATININE FOR GFR 1.31 MG/DL (0.70-1.30); GLOMERULAR FILTRATION RATE 55.1 (>35); POTASSIUM SERUM 4.4 MEQ/L (3.5-5.1)
[2018-09-05] MEDS ORDERED: METO5TA PO (07:20)
[2018-09-05] MEDS: ALBUTEROL SULFATE 2.5 MG/0.5 ML INH NEB SOLN INH SCH (07:22)
[2018-09-05] MEDS ORDERED: metOLazone 5 MG TAB PO ONE (08:00)
[2018-09-05] MEDS: CYANOCOBALAMIN 500 MCG TAB PO SCH (08:06)
[2018-09-05] MEDS: APIXABAN 5 MG TAB (ELIQUIS) PO SCH (08:06)
[2018-09-05] MEDS: SPIRONOLACTONE 50 MG TAB PO SCH (08:06)
[2018-09-05] MEDS: FUROSEMIDE 100 MG/10 ML VIAL (J1940) IV SCH (08:07)
[2018-09-05] MEDS: LIDOCAINE 5% (LIDODERM) PATCH TD SCH (08:07)
--- NOTE | 2018-09-05 10:57 | DS.PDOC ---
Discharge Summary General Date of Admission Sep 03, 2018 at 07:58 Date of Discharge 09/05/18 Discharge Summary PROCEDURES PERFORMED DURING STAY: [None]. DISCHARGE DIAGNOSES: Diastolic CHF exacerbation Viral Gastroenteritis Olecranon bursitis improved. SECONDARY DIAGNOSIS: Morbid obesity, Diastolic , LVEF 70%, Mild pulmonary HTN, Atrial flutter on Eliquis, Depression, H/O Colon cancer s/p right hemicolectomy, ED, AV block s/p pacemaker insertion, Mild aortic stenosis , PAD, Moderate stenosis of Celiac trunk, Abdominal infrarenal aneurysm 3.1 cm. COMPLICATIONS/CHIEF COMPLAINT: UTI. HISTORY OF PRESENT ILLNESS: Please see history and physical HOSPITAL COURSE: Mr. Ackerman is an 88-year-old male with PMH of morbid obesity, Diastolic congestive heart failure, LVEF 70%, Mild pulmonary HTN, Atrial flutter on Eliquis, Depression, Colon cancer s/p right hemicolectomy, appendectomy, cholecystectomy, ED, AV block s/p pacemaker insertion, Mild aortic stenosis who presents to [facility]'s Emergency Department with watery diarrhea , lower abdominal pain and right elbow pain. He had a very dirty UA so he was admitted for possible UTI and olecranon bursitis. He was also noted to have 4+ bipedal edema and he complained of some chest tightness and exertional SOB and some rattling in his chest. SO it is felt that he has CHF exacerbation also. Diastolic CHF exacerbation fluid restriction 1.8 liters restart home torsemide and spironolactone will add metolazone every other day. Daily weight monitoring at home Abdominal pain and diarrhea resolved. 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 ALLERGIES: Please see below. PHYSICAL EXAMINATION ON DISCHARGE: VITAL SIGNS: Please see below. General Exam: Positive: Alert, Cooperative, No Acute Distress Eye Exam: Positive: PERRLA, Conjunctiva & lids normal, EOMI; Negative: Sclera icteric ENT Exam: Positive: Atraumatic, Mucous membr. moist/pink, Pharynx Normal, Tongue Midline, Nares Patent; Negative: Pharyngeal Edema Neck Exam: Positive: Supple, +2 carotid pulse wo bruit; Negative: JVD (unable to discerne due to neck circumference and body habitus), thyromegaly, Lymphadenopathy Chest Exam: Positive: Wheezing, Diminished; Negative: Rales Heart Exam: Positive: Rate Normal, Regular Rhythm, Normal S1, Normal S2; Negative: Gallops, Murmurs, Rubs Telemetry: Positive: Other Telemetry: (atrial flutter) Abdomen Exam: Positive: Normal bowel sounds, Soft, Other (obese, rotund); Negative: Tenderness, Hepatospenomegaly, Mass, Hernia Extremity Exam: Positive: Edema (+3 pitting edema in B/L LE), Swelling; Negative: Clubbing, Cyanosis, Normal pulses (difficult to appreciate due to edema), Tenderness Skin Exam: Positive: Other skin issue (chronic changes noted to B/L LE); Negative: Rash, Lesion Neuro Exam: Positive: Normal Speech, Cranial Nerves 3-12 NL Psych Exam: Positive: Oriented x 3 LABORATORY DATA: Please see below. ACTIVITY: [As tolerated]. DIET: 2 gm sodium, 1.8 L fluid retention. DISCHARGE PLAN: Home , refused services. DISPOSITION: . DISCHARGE INSTRUCTIONS: Follow up PMD in 1 week DISCHARGE CONDITION: [Stable]. TIME SPENT ON DISCHARGE: 40 minutes. Vital Signs/I&Os Vital Signs Date Time Temp Pulse Resp B/P (MAP) Pulse Ox O2 Delivery O2 Flow Rate FiO2 09/05/18 06:00 97.1 60 14 120/62 (81) 94 09/02/18 05:29 Room Air I&O- Last 24 Hours up to 6 AM 09/05/18 06:00 Intake Total 970 ml Output Total 3550 ml Balance -2580 ml Laboratory Data Labs 24H Laboratory Tests 2 09/05/18 05:16: Anion Gap 8, Glomerular Filtration Rate 55.1, Blood Urea Nitrogen 20H, Creatinine 1.31H, Sodium Level 134L, Potassium Level 4.4, Chloride Level 98, Carbon Dioxide Level 28, Calcium Level 8.6L 09/05/18 05:22: Nucleated Red Blood Cells % (auto) 0.0 CBC/BMP Laboratory Tests 09/05/18 05:16 Calcium Level 8.6 L 09/05/18 05:22 Red Blood Count 4.09 L, Mean Corpuscular Volume 99.0 H, Mean Corpuscular Hemoglobin 33.3 H, Mean Corpuscular Hemoglobin Concent 33.6, Red Cell Distribution Width 13.2 Microbiology Microbiology 09/01/18 Blood Culture - Preliminary, Resulted No Growth after 72 hours. All specime... 09/01/18 Blood Culture - Preliminary, Resulted No Growth after 72 hours. All specime... 09/02/18 Gastrointestinal Tract Panel (PCR) - Final, Complete 09/01/18 Urine Culture - Final, Complete Discharge Medications Scheduled Albuterol Sulf (Albuterol Sulfate) 2.5 Mg/3 Ml Vial.neb, 2.5 MG INH TID, (Reported) Apixaban (Eliquis) 5 Mg Tab, 5 MG PO BID, (Reported) Cyanocobalamin (Vitamin B-12) (Vitamin B-12) 500 Mcg Tab, 500 MCG PO DAILY, (Reported) Metolazone (Metolazone) 5 Mg Tablet, 1 TAB PO ASDIRECTED every other day take 1/2 hour before morning torsemide dose Polyethylene Glycol 3350 (Miralax) 17 Gm Powd.pack, 17 GM PO DAILY, (Reported) Spironolactone (Spironolactone) 100 Mg Tablet, 100 MG PO DAILY, (Reported) Torsemide (Torsemide) 20 Mg Tablet, 60 MG PO DAILY, (Reported) Torsemide (Torsemide) 20 Mg Tablet, 40 MG PO QPM, (Reported) Allergies Coded Allergies: Penicillins (Verified Allergy, Intermediate, hives/swelling, 09/01/18) procaine (Verified Allergy, Mild, RASH/SWELLING, 09/01/18) OSMIN STEVEN MD Sep 05, 2018 10:57
== END 2018-09-05 10:20 | disposition home or self-care (01) | DRG 391 ==
LOC: M ED 19:18 → M ED INP 19:19 → M MS5PR 09-02 13:50 → OBSVTOIN 09-03 07:58
PROVIDERS: ADMIT Student in an Organized Health Care Education/Training Program; ATTEND Internal Medicine Nephrology
DX: A08.4 Viral intestinal infection, unspecified (principal); I50.33 Acute on chronic diastolic (congestive) heart failure; I48.92 Unspecified atrial flutter; I27.20 Pulmonary hypertension, unspecified; F32.9 Major depressive disorder, single episode, unspecified; N52.9 Male erectile dysfunction, unspecified; E66.01 Morbid (severe) obesity due to excess calories; M70.21 Olecranon bursitis, right elbow; I35.0 Nonrheumatic aortic (valve) stenosis; Z95.0 Presence of cardiac pacemaker; Z79.01 Long term (current) use of anticoagulants; Z79.899 Other long term (current) drug therapy; Z88.0 Allergy status to penicillin; Z85.038 Personal history of other malignant neoplasm of large intestine; Z88.8 Allergy status to other drugs, medicaments and biological substances; Z96.653 Presence of artificial knee joint, bilateral; Z90.49 Acquired absence of other specified parts of digestive tract; Z87.891 Personal history of nicotine dependence; I71.4 Abdominal aortic aneurysm, without rupture; I73.9 Peripheral vascular disease, unspecified

== ENCOUNTER 2018-09-18 01:11 | Inpatient (IN) | payer MEDICARE ==
[~2018-09-18] VITALS: Ht 177.8 cm; Wt 125.0 kg
[~2018-09-18 01:11] MED LIST changes: +ALBU83IN INH; +METO5TA PO; +MIRA1POW3 PO; +TORS20TA2 PO
[2018-09-18 01:20] VITALS: BP 97/50
[2018-09-18] MEDS ORDERED: ONDANSETRON 4 MG ORAL DISINTEGRATING TAB (Q0162 PER 1MG) PO PRN ×2 (02:00→10:45)
--- NOTE | 2018-09-18 02:22 | HPEPDOC ---
General Date of Admission 09/18/18 Date of Service: Sep 18, 2018 Chief Complaint The patient is a 88-year-old male admitted with a reason for visit of SOB. Source: Family, RN/MD, Old records Exam Limitations: Clinical conditions Severity: Severe Associated Symptoms: Shortness of breath, Weakness, Mechanical fall History of Present Illness Mr. Ackerman is an 88-year-old male with PMH of morbid obesity, Diastolic congestive heart failure, LVEF 70%, Mild pulmonary HTN, Atrial flutter was on Eliquis, Depression, Colon cancer s/p right hemicolectomy, appendectomy, cholecystectomy, ED, AV block s/p pacemaker insertion, Mild aortic stenosis was admitted into the hospital from 09/03/18 to 09/05/18 and treated for CHF exacerbation. After going home he did not do well. He did not want to take his medications. He was weak. He had a fall a weak ago and hit his head and since then he has rapidly gone downhill. He has been unable to get out of bed since since and has become progressively somnolent. Daughter who is an RN thinks he may have had an intracranial bleed however patient had refused to come to the hospital. He said he did not want to go on like this . He wanted to be kept comfortable and no more hospital or needles or treatment. Family honored his wishes and has been setting up for Home Hospice. Patient was supposed to go into home hospice on Wednesday (09/19/18) but since yesterday he has gone downhill so much that could no longer provide him the care at home to keep him comfortable. His daughter who is an RN is at bedside along with the patient's . 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 Home Medications No Active Prescriptions or Reported Meds Allergies Coded Allergies: Penicillins (Verified Allergy, Intermediate, hives/swelling, 09/01/18) procaine (Verified Allergy, Mild, RASH/SWELLING, 09/01/18) Past Medical History Medical History Morbid obesity, Diastolic congestive heart failure, LVEF 70%, Mild pulmonary HTN, Atrial flutter was on Eliquis, Depression, Colon cancer s/p right hemicolectomy, appendectomy, cholecystectomy, ED, AV block s/p pacemaker insertion, Mild aortic stenosis Surgical History right hemicolectomy, appendectomy, cholecystectomy, pacemaker insertion, b/l knee arthroscopy Family History Father: , 90s, old age Mother: , 80s, old age Siblings Brothers: x4, 1 from dementia Sisters: x4, 1 at 1 month old Social History * Smoker: former Smoker Alcohol: Denies Drugs: denies A-FIB/CHADSVASC A-FIB History Current/History of A-Fib/PAF?: Yes Current PO Anticoag Therapy: No Review of Systems Constitutional: Denies: Chills, Fever, Night Sweats Eyes: Denies: Pain, Vision change Skin: Denies: Rash, Lesions, Breakdown Pulmonary: Reports: Dyspnea; Denies: Cough Cardiovascular: Denies: Chest Pain, Palpitations, Orthopnea, Paroxysmal Noc. Dyspnea, Lt Headedness Gastrointestinal: Denies: Nausea, Vomiting, Abdominal Pain, Diarrhea Genitourinary: Reports: Incontinence Hematologic: Denies: Bruising, Bleeding Excessively Neurological: Reports: Weakness, Incoordination, Change in speech, Confusion Physical Examination General Exam: Positive: Moderate Distress, Other (lethargic) ENT Exam: Positive: Atraumatic, Mucous membr. moist/pink, Pharynx Normal Neck Exam: Positive: Supple; Negative: JVD, thyromegaly Chest Exam: Positive: Diminished Heart Exam: Positive: Rate Normal, Irregular Rhythm, Normal S1, Normal S2; Negative: Gallops, Murmurs, Rubs Abdomen Exam: Positive: Normal bowel sounds, Soft, Other (distended) Extremity Exam: Negative: Clubbing, Cyanosis, Edema Skin Exam: Positive: Nl turgor and temperature; Negative: Breakdown, Lesion Vital Signs Vital Signs Date Time Temp Pulse Resp B/P (MAP) Pulse Ox O2 Delivery O2 Flow Rate FiO2 09/18/18 01:24 Room Air 09/18/18 01:20 98.8 60 16 97/50 (75) 94 Assessment/Plan Mr. Ackerman is an 88-year-old male with PMH of morbid obesity, Diastolic congestive heart failure, LVEF 70%, Mild pulmonary HTN, Atrial flutter was on Eliquis, Depression, Colon cancer s/p right hemicolectomy, appendectomy, cholecystectomy, ED, AV block s/p pacemaker insertion, Mild aortic stenosis was admitted into the hospital from 09/03/18 to 09/05/18 and treated for CHF exacerbation. After going home he did not do well. He did not want to take his medications. He was weak. He had a fall a weak ago and hit his head and since then he has rapidly gone downhill. He has been unable to get out of bed since since and has become progressively somnolent. Daughter who is an RN thinks he may have had an intracranial bleed however patient had refused to come to the hospital. He said he did not want to go on like this . He wanted to be kept comfortable and no more hospital or needles or treatment. Family honored his wishes and has been setting up for Home Hospice. Patient was supposed to go into home hospice on Wednesday (09/19/18) but since yesterday he has gone downhill so much that could no longer provide him the care at home to keep him comfortable. His daughter who is an RN is at bedside along with the patient's . 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 CUT OFF MACHINE HELPER will give s/l morphine, hyoscine, ativan as needed If patient survives over the weekend they would like to take him home with home hospice. oxygen for comfort. Hospice consult. Plan / VTE VTE Prophylaxis Ordered?: No OSMIN STEVEN MD Sep 18, 2018 02:22
[2018-09-18] MEDS: MORPHINE 10MG/0.5ML ORAL CONCENTRATE SOLUTION U/D SL PRN ×6 (02:56→22:18)
[2018-09-18] MEDS: HYOSCYAMINE SULFATE 0.125 MG SUBL TABLET PO PRN (03:14)
[2018-09-18] MEDS ORDERED: TORS20TA2 PO (04:41)
[2018-09-18] MEDS ORDERED: METO5TA PO (04:44)
[2018-09-18] MEDS ORDERED: ALBU1.25 INH (04:44)
[2018-09-18] MEDS ORDERED: ELIQ5TAB PO (04:44)
[2018-09-18] MEDS ORDERED: MIRA3350 PO (04:44)
[2018-09-18] MEDS ORDERED: MAGN1CAP PO (04:44)
[2018-09-18] MEDS ORDERED: SPIR100T3 PO (04:44)
[2018-09-18] MEDS ORDERED: VITA500T40 PO (04:44)
[2018-09-18] MEDS ORDERED: ACET-897 PO (04:44)
[2018-09-18] MEDS: LORazepam 1 MG TAB PO PRN ×3 (07:06→18:41)
[2018-09-18] MEDS ORDERED: LORazepam 1 MG TAB PO PRN (10:45)
[2018-09-18] MEDS ORDERED: SCOPOLAMINE 1MG TRANSDERMAL PATCH TOP PRN (10:45)
[2018-09-18] MEDS ORDERED: HYOSCYAMINE SULFATE 0.125 MG SUBL TABLET PO PRN (10:45)
[2018-09-18] MEDS ORDERED: BISACODYL 10 MG SUPP PR PRN (10:45)
[2018-09-18] MEDS ORDERED: MORPHINE 10MG/0.5ML ORAL CONCENTRATE SOLUTION U/D SL PRN (10:45)
[2018-09-18] MEDS: ATROPINE SULFATE 1% OP SOLN 2 ML BTL SL PRN ×3 (14:08→20:58)
--- NOTE | 2018-09-18 17:34 | IPNPDOC ---
Text Note Date of Service The patient was seen on 09/18/18. 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 He had intractible pain (back). He currently is resting comfortable, does not awaken to verbal stimuli. Family states he had been awake 19/10 for 2-3 days in extreme pain so they are great full his is resting with pain control. 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 market research senior project manager consulted to coordinate on wednesday admission to hospice VS,Yanique, I+O VS, Zoe, I+O Vital Signs Date Time Temp Pulse Resp B/P (MAP) Pulse Ox O2 Delivery O2 Flow Rate FiO2 09/18/18 07:02 20 09/18/18 02:56 95 09/18/18 01:24 Room Air 09/18/18 01:20 98.8 60 97/50 (66) JOSEPH CLAIRE DO Sep 18, 2018 17:34
[2018-09-19] MEDS: ATROPINE SULFATE 1% OP SOLN 2 ML BTL SL PRN (00:10)
[2018-09-19] MEDS: MORPHINE 10MG/0.5ML ORAL CONCENTRATE SOLUTION U/D SL PRN ×5 (00:37→10:30)
[2018-09-19] MEDS: LORazepam 1 MG TAB PO PRN ×2 (03:52→06:50)
--- NOTE | 2018-09-19 10:29 | IPNPDOC ---
Text Note Date of Service The patient was seen on 09/19/18. NOTE S: patient appears comfortable; and extended family members in room (including duaghters who are nurses). and family report that every 2hours he is waking up with pain, moaning, moving around in bed without position of comfort and takes alittle longer for oral morphine to help settle his pain down. patient, when awakes thinks he is at home. They are requesting morphine drip for more constant pain relief . The states she can not take him home and care for him. O: General: resting comfortably, appears sleeping, moves away from tactile stimuli, non verbal during exam Heart - irregular 60-80 with occasional pauses LCTA with course breath sounds and brief 1-2 second apneic episodes; upper airway gurgle present A/P: A/P: 88-year-old male on Comfort measures only for endstage CAD with CHF , recent fall and possible subdural bleed; Family honored patient wishes of AMORTIZATION CLERK/Hospice - however states she is not able to care for him at home and is not interested in home hospice. Oral morphine with wax/wane pain control , will start morphine drip for more consistent pain control. continue with scop patch, etc for secretions. consider glycopurolate if secretions worsen. Discussed with family that current brief apneic episodes will increase in frequency as part of dying process. questions answered. VS,Fishbone, I+O VS, Fishbone, I+O Vital Signs Date Time Temp Pulse Resp B/P (MAP) Pulse Ox O2 Delivery O2 Flow Rate FiO2 09/19/18 06:03 20 09/18/18 02:56 95 09/18/18 01:24 Room Air 09/18/18 01:20 98.8 60 97/50 (66) I&O- Last 24 Hours up to 6 AM 09/19/18 06:00 Intake Total 0 ml Balance 0 ml JOSEPH CLAIRE DO Sep 19, 2018 10:29
[2018-09-19] MEDS ORDERED: MORPHINE SULF IN 0.9% NACL 100 MG in APPROPRIATE DILUENT 1 EA IV SCH ×2 (11:00)
[2018-09-19] MEDS ORDERED: ONDANSETRON 4MG/2ML VIAL (J2405) IV PRN (13:15)
[2018-09-19] MEDS ORDERED: LORazepam 2 MG/ML VIAL (J2060) IV PRN (13:15)
[2018-09-20] MEDS: ATROPINE SULFATE 1% OP SOLN 2 ML BTL SL PRN (00:41)
[2018-09-20] MEDS: HYOSCYAMINE SULFATE 0.125 MG SUBL TABLET PO PRN (00:41)
[2018-09-20] MEDS ORDERED: LORazepam 2 MG/ML VIAL (J2060) IV PRN (01:15)
--- NOTE | 2018-09-21 09:09 | DS.PDOC ---
Discharge Summary General Date of Admission Sep 19, 2018 at 10:16 Date of Discharge 09/20/18 @0138 Attending Physician: JOSEPH CLAIRE DO Discharge Summary PROCEDURES PERFORMED DURING STAY: none ADMITTING DIAGNOSES: 1. 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 HISTORY OF PRESENT ILLNESS:88 yo male presented to ED with intractible pain, unable to get out of bed after fall at home. Family attempting to get hospice for home. See H&P for details HOSPITAL COURSE: Patient admitted, placed on comfort measures. IV morphine initiated and pain controlled. Patient 09/20/18 with family at bedside DISCHARGE MEDICATIONS: Please see below. ALLERGIES: Please see below. PHYSICAL EXAMINATION ON DISCHARGE:not seen. pronounced by nursing staff at 0138 DISPOSITION: 20 . TIME SPENT ON DISCHARGE: 10 minutes. Vital Signs/I&Os Vital Signs Date Time Temp Pulse Resp B/P (MAP) Pulse Ox O2 Delivery O2 Flow Rate FiO2 09/19/18 06:03 20 09/18/18 02:56 95 09/18/18 01:24 Room Air 09/18/18 01:20 98.8 60 97/50 (66) Discharge Medications Scheduled Albuterol Sulfate (Albuterol Sulfate) 1.25 Mg/3 Ml Vial.neb, 1.25 MG INH TID, (Reported) Apixaban (Eliquis) 5 Mg Tablet, 5 MG PO BID, (Reported) Cyanocobalamin (Vitamin B-12) (Vitamin B-12) 500 Mcg Tablet, 500 MCG PO DAILY, (Reported) Magnesium Oxide (Magnesium) 500 Mg Capsule, 500 MG PO DAILY, (Reported) Metolazone (Metolazone) 5 Mg Tablet, 2.5 MG PO Q2D, (Reported) Polyethylene Glycol 3350 (Miralax) 119 Gm Powder, 17 GM PO DAILY, (Reported) Spironolactone (Spironolactone) 100 Mg Tablet, 100 MG PO DAILY, (Reported) Torsemide (Torsemide) 20 Mg Tablet, 60 MG PO DAILY, (Reported) Scheduled PRN Acetaminophen (Tylenol Extra Strength) 500 Mg Tablet, 1,000 MG PO Q4H PRN for PAIN / FEVER, (Reported) Allergies Coded Allergies: Penicillins (Verified Allergy, Intermediate, hives/swelling, 09/01/18) procaine (Verified Allergy, Mild, RASH/SWELLING, 09/01/18) JOSEPH CLAIRE DO Sep 21, 2018 09:09
== END 2018-09-20 01:38 | disposition expired | DRG 86 ==
LOC: M ED 01:11 → M ED INP 01:59 → M MSPAV 03:31 → OBSVTOIN 09-19 10:16 → M MSPAV 09-19 21:41
PROVIDERS: ADMIT Internal Medicine Nephrology; ATTEND Family Medicine
DX: S06.5X0A Traumatic subdural hemorrhage without loss of consciousness, initial encounter (principal); I50.32 Chronic diastolic (congestive) heart failure; I48.92 Unspecified atrial flutter; Z51.5 Encounter for palliative care; I25.10 Atherosclerotic heart disease of native coronary artery without angina pectoris; Z79.899 Other long term (current) drug therapy; Z88.0 Allergy status to penicillin; Z88.8 Allergy status to other drugs, medicaments and biological substances; E66.01 Morbid (severe) obesity due to excess calories; I27.20 Pulmonary hypertension, unspecified; Z79.01 Long term (current) use of anticoagulants; F32.9 Major depressive disorder, single episode, unspecified; Z85.038 Personal history of other malignant neoplasm of large intestine; Z95.0 Presence of cardiac pacemaker; I35.0 Nonrheumatic aortic (valve) stenosis; W18.30XA Fall on same level, unspecified, initial encounter; Y92.009 Unspecified place in unspecified non-institutional (private) residence as the place of occurrence of the external cause